=== PATIENT | female | born 1975 | race Caucasian/White ===

== ENCOUNTER 2017-04-17 14:47 | Observation (INO) ==
[2017-04-17] MEDS ORDERED: Acetaminophen 325 MG TABLET PO PRN (18:59)
[2017-04-17] MEDS ORDERED: Naloxone 0.4 MG/ML INJ IVP PRN (18:59)
[2017-04-17] MEDS ORDERED: Ondansetron 4 MG/2 ML VIAL IVP PRN (18:59)
[2017-04-17] MEDS ORDERED: *HR* Morphine 2 MG/ML SYRINGE IVP PRN (18:59)
[2017-04-17] MEDS ORDERED: Nitroglycerin 0.4 MG TAB.SUBL SL PRN (19:04)
--- NOTE | 2017-04-17 20:20 | Internal Med History&Physical ---
Date of Encounter: 04/17/17 Time of Encounter: 19:45 Assessment and Plan (1) Chest pain Current visit: No Status: Acute Atypical chest pain - rule out ACS Continue Aspirin, Lipitor, Nitroglycerin as needed, IV Morphine as needed Risk factors including smoking, hypertension, family history of coronary artery disease EKG - sinus rhythm with no acute ST-T changes, possible old inferior PA Chest x-ray - pending Troponin - negative, cycle troponin BNP - pending Echocardiogram - pending Stress test - pending Lipid panel - pending Cardiac telemetry, all labs in a.m., monitor closely Qualifiers: Ischemic chest pain type: unspecified angina pectoris type Qualified Code(s ): I20.9 - Angina pectoris, unspecified (2) Prediabetes Current visit: Yes Status: Acute Patient states she has been diagnosed with prediabetes recently Continue glucose checks, insulin sliding scale HbA1c - pending (3) HTN (hypertension) Current visit: No Status: Chronic Essential hypertension, controlled, monitor Hold home meds including Metoprolol, Clonidine and Amlodipine due to hypotension Qualifiers: Hypertension type: essential hypertension Qualified Code(s): I10 - Essential (primary) hypertension (4) Depression Current visit: Yes Status: Chronic Chronic major depression, stable Continue home dose of Trazodone when dose is confirmed Qualifiers: Depression Type: major depressive disorder Major depression recurrence: recurrent Active/Remission status: currently active Major depression episode severity: mild Qualified Code(s): F33.0 - Major depressive disorder, recurrent, mild (5) Restless legs syndrome Current visit: Yes Status: Chronic Chronic restless leg syndrome - continue Requip 0.5 mg (6) Tobacco abuse disorder Current visit: No Status: Chronic Patient smokes about one pack of cigarettes daily, and has smoked for more than 10 years Counseled about cessation, nicotine patch after stress test (7) DVT prophylaxis Current visit: Yes Status: Acute Continue heparin subcutaneous Internal Medicine - H&P: HPI Chief complaint: Chest pain Admitted From: Hospital to Hospital Transfer Plans for Post Hospital Care: Home History of present illness: Ms. Lang is a 41 year old female with past medical history of hypertension, depression, history of PA, probable COPD and restless legs syndrome. Patient presents as a transfer from [facility] in [place] for chest pain. Examined in the room. Patient is awake and alert. Not in any distress. Able to provide all history. Family is at bedside. Patient states she developed chest pain about one week ago, and the pain has been intermittent. She decided to go to the ED today because of dizziness and headache, and her blood pressure was low when she checked it. Patient also complains of mild associated shortness of breath and palpitations. She describes the chest pain as left- sided which is dull pressure-like pain. It radiates to the center of her chest , and sometimes toward her back on the left side. She cannot think of anything that may have started the symptoms. No aggravating or alleviating factors. Chest pain has been intermittent and lasts anywhere between a few minutes to up an hour. Denies cough or vomiting or fever. Denies diaphoresis. No other associated symptoms. No other acute complaints. Patient states chest pain seems to have improved at this time. Risk factors for PA include smoking, hypertension and strong family history of coronary artery disease. Patient states she smokes about 1 pack cigarettes daily and has been smoking for more than 10 years. Patient was transferred here at her request. Initial workup at [facility] is negative. Troponin is negative. EKG does not show any acute ST-T changes. Repeat EKG here shows sinus rhythm with no acute ST-T changes, and shows possible old inferior PA. We will need to trend troponin. Patient has been given 325 mg Aspirin at [facility]. We will continue her home dose of Aspirin in the morning. She will also be on Lipitor. Patient will need stress test and echocardiogram. Patient and family have been explained about her condition and plan of care in detail. They understood and agreed. No unanswered questions. CODE STATUS full code. Past Med Surg Social Fam HX - Past Medical History Medical history: cancer, GERD, hypertension, myocardial infarction Psychiatric history: depression - Past Surgical History Surgical History: hysterectomy, orthopedic, other (Ankle fracture repair, fracture of the hand), COLIN/BSO, other (Left heart cath, left renal cancer/cyst surgery) - Social History Smoking Status: Current every day smoker Packs per day: 1 Smokeless Tobacco Status: No Alcohol use: none Drug use: none - Family History Father Hx Family Cardiac Disorders: Yes Mother Adopted: No Living Status: Hx Family Cardiac Disorders: Yes (htn, mitral valve issues, PA) Hx Family Respiratory Disorders: No Hx Family Cancer: No Hx Family GI Disorders: No Hx Family Endocrine Disorder: No Hx Family Neuromuscular Disorders: No Hx Family Neurologic Disorders: No Hx Family HEENT Disorders: No Hx Family Autoimmune Disorders: No Internal Medicine - H&P: Meds Amlodipine [Norvasc] 10 mg PO HS 02/14/15 [History] Aspirin Enteric Coated [Aspirin EC] 81 mg PO DAILY 02/14/15 [History] CloNIDine HCl 0.1 mg PO TID 02/14/15 [History] Metoprolol [Lopressor] 100 mg PO HS 02/14/15 [History] Ranitidine HCl [Zantac] 150 mg PO HS 02/14/15 [History] Albuterol Sulfate [Albuterol Inhaler] 1 puff IH Q4HR PRN #1 hfa.aer.ad NS [Rx] Losartan Potassium [Cozaar] 100 mg PO HS 07/28/15 [History] Ropinirole HCl [Requip] 0.25 mg PO HS 07/28/15 [History] Spironolactone [Aldactone] 50 mg PO HS 07/28/15 [History] HYDROcodone/Acet 5/325 mg [Keasbey 5-325 mg] 2 tab PO Q4H PRN #25 tablet 07/30/15 [Rx] Nystatin [Nystatin Suspension] 5 ml PO QID #240 ml 07/31/15 [Rx] cephALEXin [Keflex] 500 mg PO QID 10 Days capsule 07/31/15 [Rx] Naproxen [Naprosyn] 500 mg PO BID PRN #30 tablet 09/04/15 [Rx] OxyCODONE/APAP 5/325 [Percocet 5/325 MG] 1 each PO Q6HR PRN #10 tablet 09/04/15 [Rx] traMADol [Ultram] 50 mg PO Q6HR #20 tablet 11/02/15 [Rx] HYDROcodone/Acet 5/325 mg [Keasbey 5-325 mg] 1 tab PO Q6H PRN #12 tab 03/24/16 [Rx ] 3 Allergy/AdvReac Type Severity Reaction Status Date / Time No Known Allergies Allergy Verified 04/14/15 15:27 All Systems PM: A 10-system review of systems was performed and is negative for pertinent findings except as documented above in the HPI. - Constitutional Constitutional: fatigue, no fever(s), no weakness - EENT Eyes: no blurry vision - Cardiovascular Cardiovascular ROS IM: chest pain, dyspnea, edema, palpitations, no diaphoresis , no dyspnea on exertion, no lightheadedness, no orthopnea, no syncope - Respiratory Respiratory: dyspnea, no cough, no hemoptysis, no dyspnea on exertion, no wheezing, no chest congestion - Gastrointestinal Gastrointestinal: no abdominal pain, no belching, no cramping, no diarrhea, no hematemesis, no hematochezia, no nausea, no vomiting - Genitourinary Genitourinary: no dysuria - Neurological Neurological ROS: no abnormal gait, no confusion, no dizziness, no focal weakness, no numbness, no tingling - Constitutional Vitals: Temp Pulse Resp BP Pulse Ox 98.5 F 71 18 97/60 94 04/17/17 18:48 04/17/17 18:48 04/17/17 18:48 04/17/17 18:48 04/17/17 18:48 General appearance: Present: cooperative, A&O X 3, pleasant, no acute distress, obese, answers questions appropriately - Head Head exam: Present: atraumatic - Eye Eye exam: Present: EOMI - ENT ENT exam: Present: mucous membranes moist - Respiratory Respiratory exam: Present: CTAB. Absent: rales, rhonchi, wheezes, tachypnea - Cardiovascular Cardiovascular exam: Present: RRR, +S1, +S2 - GI/Abdominal GI/Abdominal exam: Present: soft. Absent: distended, firm, guarding, tenderness - Extremities Exam Extremities exam: Present: pedal edema (Mild bilateral lower leg edema), radial pulses palpable and symmetrical. Absent: calf tenderness, cyanotic - Neurological Exam Neurological exam: Present: alert, oriented X3, no focal deficits. Absent: facial droop, speech deficit
[2017-04-17 20:29] LABS: Basophils % 0.2 %; Eosinophils # 0.1 K/mcL (0.0-0.6); Eosinophils % 1.1 %; Hematocrit 45.2 % (35.3-44.9); Hemoglobin 15.9 g/dL (11.5-15.4); Immature Granulocytes % 0.4 % (0-4); Immature Platelets 13.7 % (1.1-6.1); Lymphocytes # 3.2 K/mcL (0.6-4.6); Lymphocytes % 39.9 %; Mean Corpuscular HGB Conc 35.2 g/dL (31.6-35.5); Mean Corpuscular Hemoglobin 30.2 pg (28.0-33.3); Mean Corpuscular Volume 85.9 fL (83.0-100.0); Mean Platelet Volume 12.2 fL (9.4-12.4); Monocytes # 0.5 K/mcL (0.0-1.3); Monocytes % 5.7 %; Neutrophils # 4.3 K/mcL (1.6-8.9); Platelet Count 189 K/mcL (140-400); Red Blood Count 5.26 M/mcL (3.82-4.97); Red Cell Distribution Width 13.2 % (11.5-14.5); Segmented Neutrophils % 52.7 %
[2017-04-17 20:33] LABS: Prothrombin Time 10.8 Seconds (9.4-12.1)
[2017-04-17 20:42] LABS: BUN/Creatinine Ratio 21 (6-26); Blood Urea Nitrogen 16 mg/dL (7-20); Calcium 9.2 mg/dL (8.6-10.8); Carbon Dioxide 25 mEq/L (19-29); Chloride 106 mEq/L (98-109); Chol/HDL Ratio 8.6 (0-4.9); Cholesterol 197 mg/dL (< 200); Glucose 142 mg/dL (70-99); HDL Cholesterol 23 mg/dL (40-59); Magnesium 2.2 mg/dL (1.6-2.6); Osmolality,Calculated 296 (280-300); Potassium 3.4 mEq/L (3.5-4.5); Triglycerides 531 mg/dL (< 150); eGFR For African Americans > 60 (> 60); eGFR For Non-African Americans > 60 (> 60)
[2017-04-17 20:50] LABS: Sodium 141 mEq/L (136-145)
[2017-04-17] MEDS ORDERED: rOPINIRole 0.25 MG TABLET PO SCH (21:00)
[2017-04-17] MEDS ORDERED: D5% in Water 1,000 ML IVC PRN (21:48)
[2017-04-17] MEDS ORDERED: Dextrose Gel 15 GM PO PRN ×2 (21:48)
[2017-04-17] MEDS ORDERED: *HR* Dextrose 50 % in Water (Syg) 50 ML SYRINGE IVP PRN (21:48)
[2017-04-17] MEDS: *HR* Heparin 5,000 UNIT/ML VIAL SQ SCH (21:59)
[2017-04-17 22:07] LABS: Hemoglobin A1C 5.3 %
[2017-04-18 01:01] LABS: Basophils % 0.3 %; Eosinophils # 0.1 K/mcL (0.0-0.6); Eosinophils % 1.4 %; Hematocrit 42.8 % (35.3-44.9); Hemoglobin 14.7 g/dL (11.5-15.4); Immature Granulocytes % 0.1 % (0-4); Immature Platelets 14.1 % (1.1-6.1); Lymphocytes # 3.3 K/mcL (0.6-4.6); Lymphocytes % 43.4 %; Mean Corpuscular HGB Conc 34.3 g/dL (31.6-35.5); Mean Corpuscular Hemoglobin 30.1 pg (28.0-33.3); Mean Corpuscular Volume 87.5 fL (83.0-100.0); Mean Platelet Volume 12.1 fL (9.4-12.4); Monocytes # 0.6 K/mcL (0.0-1.3); Neutrophils # 3.6 K/mcL (1.6-8.9); Platelet Count 161 K/mcL (140-400); Red Blood Count 4.89 M/mcL (3.82-4.97); Red Cell Distribution Width 13.3 % (11.5-14.5); Segmented Neutrophils % 46.8 %
[2017-04-18 01:13] LABS: BUN/Creatinine Ratio 23 (6-26); Blood Urea Nitrogen 19 mg/dL (7-20); Calcium 9.1 mg/dL (8.6-10.8); Carbon Dioxide 27 mEq/L (19-29); Chloride 105 mEq/L (98-109); Glucose 108 mg/dL (70-99); Osmolality,Calculated 297 (280-300); Potassium 3.9 mEq/L (3.5-4.5); Sodium 142 mEq/L (136-145); eGFR For African Americans > 60 (> 60); eGFR For Non-African Americans > 60 (> 60)
[2017-04-18] MEDS ORDERED: Famotidine 20 MG/2 ML VIAL IVP SCH (06:00)
[2017-04-18] MEDS ORDERED: Regadenoson 0.4 MG/5 ML SYRINGE IVP ONE (06:04)
[2017-04-18] MEDS: *HR* Heparin 5,000 UNIT/ML VIAL SQ SCH (06:08)
[2017-04-18] MEDS ORDERED: Aspirin 81 MG TAB.CHEW PO SCH (09:00)
[2017-04-18] MEDS: Insulin LISPRO 300 UNITS/3 ML VIAL SQ SCH (12:50)
[2017-04-18] MEDS ORDERED: Furosemide 20 MG TABLET PO PRN (13:19)
[2017-04-18 14:28] VITALS: BP 129/83
--- NOTE | 2017-04-18 14:59 | Discharge Summary ---
Date of Encounter: 04/18/17 Time of Encounter: 14:00 - Discharge Diagnosis (1) Chest pain Priority: Primary Status: Acute Comments: Presented to the emergency department with one-week history of chest pain that is intermittent. Patient also reports dizziness, headache, shortness of breath palpitations and hypotension. He reports that the pain is left-sided and pressure-like radiates to mid sternal area and sometimes towards her back. There are no relieving or alleviating factors. She denies cough, nausea, vomiting, fever, chills, diaphoresis. She reports that she found an old blood pressure cuff at home and took her blood pressure, was 93/67, with a 55 pulse well-seated. Patient states that she was concerned and took so her who told her to get up and walk to smoke cigarette etc. Patient states when she came back she took her blood pressure again pulse was 60, blood pressure is 89/54. Patient has increased risk factors for UT including smoking, hypertension, family history of coronary artery disease. Patient smokes a what one pack of cigarettes a day and states that she does not want to stop smoking at this time. Troponins were negative 3. Chest x-ray from [facility] was negative for acute process. Echocardiogram shows LVEF of 65% with normal LV systolic function, normal LV diastolic function and no significant valvular dysfunction. Stress test was negative for ischemia or infarct, gated EF is greater than 70% . Pain is not reproducible with palpation, movement, deep inspiration. Patient denies chest pain at this time. Her vitals up in stable, she does become bradycardic at night, which is to be expected. Last set of vitals was pulse 67 blood pressure 129/83, 95% on room air. Patient will need to follow up with primary care provider Qualifiers: Ischemic chest pain type: unspecified angina pectoris type Qualified Code(s ): I20.9 - Angina pectoris, unspecified (2) HTN (hypertension) Priority: Secondary Status: Chronic Comments: Patient's blood pressures been well controlled in the hospital. I recommend the patient continues current regimen based on current findings. I recommended that she get a new blood pressure cuff at home to monitor vital signs. Record vital signs and share with primary care. Qualifiers: Hypertension type: essential hypertension Qualified Code(s): I10 - Essential (primary) hypertension (3) Obesity Priority: Secondary Status: Chronic Comments: Chronic. Lifestyle changes. Encouraged pt to learn about and attempt lower carbohydrate diets. Qualifiers: Obesity type: due to excess calories Obesity classification: adult class 1 (BMI 30 ? 34.9) Serious obesity comorbidity presence: without serious comorbidity Body mass index: BMI 34.0-34.9 Qualified Code(s): E66.09 - Other obesity due to excess calories; Z68.34 - Body mass index (BMI) 34.0-34.9, adult; Z68.34 - Body mass index (BMI) 34.0-34.9, adult (4) Prediabetes Priority: Secondary Status: Acute Comments: A1c 5.3%. Pt reports that her PCP told her that she had prediabetes. A1c is normal. (5) Depression Priority: Secondary Status: Chronic Comments: Chronic. Continue home medications. Qualifiers: Depression Type: major depressive disorder Major depression recurrence: recurrent Active/Remission status: currently active Major depression episode severity: mild Qualified Code(s): F33.0 - Major depressive disorder, recurrent, mild (6) DVT prophylaxis Priority: Secondary Status: Acute Comments: Heparin SQ - Discharge Medications Home Medications: Amlodipine [Norvasc] 10 mg PO HS 02/14/15 [History] Aspirin Enteric Coated [Aspirin EC] 81 mg PO DAILY 02/14/15 [History] CloNIDine HCl 0.1 mg PO TID 02/14/15 [History] Metoprolol [Lopressor] 100 mg PO BID 02/14/15 [History] Ranitidine HCl [Zantac] 150 mg PO BID 02/14/15 [History] Albuterol Sulfate [Albuterol Inhaler] 1 puff IH Q4HR PRN #1 hfa.aer.ad NS [Rx] Losartan Potassium [Cozaar] 100 mg PO HS 07/28/15 [History] Ropinirole HCl [Requip] 0.25 mg PO HS 07/28/15 [History] Spironolactone [Aldactone] 50 mg PO HS 07/28/15 [History] Aspirin 81 mg PO DAILY tab.chew 04/18/17 [Rx] Atorvastatin [Lipitor] 40 mg PO HS tablet 04/18/17 [Rx] Furosemide [Lasix] 20 mg PO DAILY PRN 04/18/17 [History] Paroxetine [Paxil] 20 mg PO DAILY 04/18/17 [History] traZODone [TraZODone] 50 mg PO HS 04/18/17 [History] Allergies/Adverse Reactions: 3 Allergy/AdvReac Type Severity Reaction Status Date / Time No Known Allergies Allergy Verified 04/14/15 15:27 Procedures/tests Complete & Pending: Procedures Performed prior 72 hours Category Date Time Status NM caprice perf SPECT multi [NM] Routine Exams 04/17/17 19:04 Taken ECG 12 lead ECG [ECG] Routine Y 04/17/17 18:59 Completed EV echocardiogram Routine Y 04/18/17 19:03 Completed SP pharm nuclear stress Routine Y 04/18/17 07:00 Completed Date of admission: 04/17/17 17:16 Primary care physician: Mason Griffith MD Discharging clinician: Radha Hall Anticipated date of discharge: 04/18/17 - Patient Status Disposition: Home, Self-Care Condition: Good Functional capacity at discharge: independent ambulation Overall status at discharge: patient is back to baseline - Discharge Instructions Follow Up With: Mason Griffith MD [Primary Care Provider] - Additional Instructions: Try to get in with your new PCP later this month as planned. No medication changes are needed currently based on your vitals while in the hospital. Make sure that you are drinking plenty of fluids. Return to the closest ER as needed Return to your normal activities as tolerated. - Diet and Activity Activity: increase activity as tolerated Diet: advance to your usual diet Hospital course: Ms. Lang is a 41 year old female with PMH of prediabetes, HTN, Obesity, tobacco abuse, left renal mass, depression, RLS. She was seen at another hospital and transferred here for evalution of chest pain and hypotension. She denies chest pain, sOB, n/v/d, diaphoresis, abd pain, headache. She has been primarily normotensive and pulse WnL throughout stay. Her stress was negative, echo showed preserved EF and no valvular dysfunction. A1c is 5.3, WNL. Pt states that she does not wish to stop smoking. Pt declines flu vaccine. Labs are stable. Pt is ready for discharge. See assessment and plan for hospital course. - Time Spent with Patient Total time spent providing and/or coordinating discharge services: Less than 30 minutes - Constitutional Vitals: Temp Pulse Resp BP Pulse Ox 98.5 F 67 17 129/83 95 04/18/17 14:23 10/16/17 14:23 04/18/17 10:57 04/18/17 14:23 04/18/17 14:23 General appearance: Present: cooperative, A&O X 3, pleasant, no acute distress, obese, answers questions appropriately - Head Head exam: Present: atraumatic, normal inspection, normocephalic - Eye Eye exam: Present: normal appearance, conjuntiva pink, sclera anicteric - Neck Neck exam general surgery: Present: supple, trachea midline. Absent: lymphadenopathy, tenderness - Respiratory Respiratory exam: Present: CTAB. Absent: accessory muscle use, chest wall tenderness, rales, respiratory distress, rhonchi, wheezes - Cardiovascular Cardiovascular exam: Present: RRR, +S1, +S2. Absent: diastolic murmur, gallop, rubs, systolic murmur - GI/Abdominal GI/Abdominal exam: Present: normal bowel sounds, soft, no peritoneal signs. Absent: distended, hepatomegaly, tenderness - Extremities Exam Extremities exam: Present: normal inspection, warm, radial pulses palpable and symmetrical. Absent: calf tenderness, cyanotic, pedal edema - Neurological Exam Neurological exam: Present: alert, oriented X3, no focal deficits. Absent: facial droop, speech deficit - Skin Skin exam: Present: dry, intact, normal color, warm. Absent: rash
[2017-04-18] MEDS ORDERED: cloNIDine HCl 0.1 MG TABLET PO SCH (15:00)
--- NOTE | 2017-04-18 18:09 | Electrocardiograph Report ---
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
[2017-04-18] MEDS ORDERED: rOPINIRole 0.25 MG TABLET PO SCH (21:00)
[2017-04-18] MEDS ORDERED: amLODIPine 5 MG TABLET PO SCH (21:00)
[2017-04-18] MEDS ORDERED: Famotidine 20 MG TABLET PO SCH (21:00)
[2017-04-18] MEDS ORDERED: Insulin LISPRO 300 UNITS/3 ML VIAL SQ SCH (21:00)
[2017-04-18] MEDS ORDERED: traZODone 50 MG TABLET PO SCH (21:00)
[2017-04-18] MEDS ORDERED: Metoprolol 100 MG TABLET PO SCH (21:00)
[2017-04-19] MEDS ORDERED: Aspirin Enteric Coated 81 MG Tablet PO SCH (09:00)
== END 2017-04-18 15:54 | disposition home or self-care (01) ==
LOC: 3BNU
PROVIDERS: ADMIT Family Medicine; ATTEND Registered Nurse

== ENCOUNTER 2017-09-29 12:50 | Observation (INO) ==
--- NOTE | 2017-09-29 17:25 | Internal Med History&Physical ---
Date of Encounter: 09/29/17 Time of Encounter: 17:12 Assessment and Plan (1) Chest pain Current visit: Yes Status: Acute Patient presented with atypical chest pain, she had a negative cardiac catheterization in 2008. She also just had a normal echocardiogram, and negative stress test in April 2017. We will do a d-dimer if it is positive then we will need PE studies, if negative follow-up 3 troponins to rule out MRI Qualifiers: Chest pain type: chest pain due to myocardial ischemia Ischemic chest pain type: angina pectoris with documented coronary spasm Qualified Code(s): I20.1 - Angina pectoris with documented spasm (2) HTN (hypertension) Current visit: Yes Status: Chronic Qualifiers: Hypertension type: essential hypertension Qualified Code(s): I10 - Essential (primary) hypertension (3) Obesity Current visit: Yes Status: Chronic Qualifiers: Obesity type: due to excess calories Obesity classification: adult class 1 (BMI 30 - 34.9) Serious obesity comorbidity presence: without serious comorbidity Body mass index: BMI 34.0-34.9 Qualified Code(s): E66.09 - Other obesity due to excess calories; Z68.34 - Body mass index (BMI) 34.0-34.9, adult; Z68.34 - Body mass index (BMI) 34.0-34.9, adult (4) Tobacco abuse disorder Current visit: Yes Status: Chronic Smoking cessation discussed (5) Prediabetes Current visit: Yes Status: Chronic (6) Depression Current visit: Yes Status: Chronic Qualifiers: Depression Type: major depressive disorder Major depression recurrence: recurrent Active/Remission status: currently active Major depression episode severity: mild Qualified Code(s): F33.0 - Major depressive disorder, recurrent, mild Internal Medicine - H&P: HPI Chief complaint: chest pain Admitted From: Home Plans for Post Hospital Care: Home History of present illness: Ms. Lang is a 41 year old female who has history of hypertension prediabetic obesity smoker presented to emergency room for chest pain. Chest pain started at 7:30 AM located to left sided chest, a constant pressure 8 out of 10, lasted for several hours, associated sweating and the nausea. She received aspirin but no nitrate due to low blood pressure. her chest pain improved. Patient said was admitted nfor chest pain in April 2017 for similar episode. she had negative stress test at that time and the echocardiogram was normal with EF 65% . Patient stated she had a history of DE back to 2008 when she had cardiac catheterization which showed normal coronary artery. Patient is admitted for rule out DE will follow-up as 3 troponins. she just had ,normal echocardiogram and a stress test on 04/2017 and will not repeated. will check D-Dimer, if elevated then need CT PE study. Past Med Surg Social Fam HX - Past Medical History Medical history: cancer, GERD, hyperlipidemia, hypertension, myocardial infarction Psychiatric history: anxiety, depression - Past Surgical History Surgical History: angioplasty/stent, hysterectomy, orthopedic, other, COLIN/BSO, other - Social History Smoking Status: Current every day smoker Smokeless Tobacco Status: No Alcohol use: none Drug use: none - Family History Father Hx Family Cardiac Disorders: Yes Mother Adopted: No Living Status: Hx Family Cardiac Disorders: Yes (htn, mitral valve issues, DE) Hx Family Respiratory Disorders: No Hx Family Cancer: No Hx Family GI Disorders: No Hx Family Endocrine Disorder: No Hx Family Neuromuscular Disorders: No Hx Family Neurologic Disorders: No Hx Family HEENT Disorders: No Hx Family Autoimmune Disorders: No Internal Medicine - H&P: Meds Amlodipine [Norvasc] 10 mg PO HS 02/14/15 [History] Aspirin Enteric Coated [Aspirin EC] 81 mg PO DAILY 02/14/15 [History] CloNIDine HCl 0.1 mg PO TID 02/14/15 [History] Metoprolol [Lopressor] 100 mg PO BID 02/14/15 [History] Ranitidine HCl [Zantac] 150 mg PO BID 02/14/15 [History] Albuterol Sulfate [Albuterol Inhaler] 1 puff IH Q4HR PRN #1 hfa.aer.ad NS [Rx] Losartan Potassium [Cozaar] 100 mg PO HS 07/28/15 [History] Ropinirole HCl [Requip] 0.25 mg PO HS 07/28/15 [History] Spironolactone [Aldactone] 50 mg PO HS 07/28/15 [History] Aspirin 81 mg PO DAILY tab.chew 04/18/17 [Rx] Atorvastatin [Lipitor] 40 mg PO HS tablet 04/18/17 [Rx] Furosemide [Lasix] 20 mg PO DAILY PRN 04/18/17 [History] Paroxetine [Paxil] 20 mg PO DAILY 04/18/17 [History] traZODone [TraZODone] 50 mg PO HS 04/18/17 [History] 3 Allergy/AdvReac Type Severity Reaction Status Date / Time No Known Allergies Allergy Verified 04/14/15 15:27 All Systems PM: A 10-system review of systems was performed and is negative for pertinent findings except as documented above in the HPI. - Constitutional General appearance: Present: A&O X 3, no acute distress, obese Exam: CONSTITUTIONAL: Patient appears as an age appropriate female well developed, in no acute distress. EYES Clear sclerae, bilateral pupils are equal, reactive to light and accommodation. Extraocular movements are intact RESPIRATORY: No accessory muscle use, bilateral clear to auscultation, no wheezing, no crackles/rales. CARDIOVASCULAR: Regular heart rate, normal S1 and S2, no murmurs GASTROINTESTINAL: bowel sounds present, soft, no tenderness. No hepatosplenomegaly. No bilateral CVA tenderness MUSCULOSKELETAL: Joints in normal range of motion, no clubbing, no edema, no cyanosis. Bilateral peripheral pulses 2+ LYMPHATIC no lymphadenopathy in neck, groin and axilla bilaterally, no thyromegaly. NEUROLOGIC: CN II to XII are grossly intact, no focal neurological deficit. Deep tendon reflexes 2+ bilaterally. Normal light touch sensation to upper and lower extremity PSYCHIATRIC: Oriented x3, with good insight, mood is euthymic. No hallucinations or delusions. SKIN: Skin warm and dry, no rashes, no open wound.
[2017-09-29] MEDS ORDERED: Naloxone 0.4 MG/ML INJ IVP PRN (17:37)
[2017-09-29] MEDS ORDERED: Metoprolol 100 MG TABLET PO SCH (21:00)
[2017-09-29] MEDS ORDERED: Famotidine 20 MG TABLET PO SCH (21:00)
[2017-09-29] MEDS ORDERED: traZODone 50 MG TABLET PO SCH (21:00)
[2017-09-29] MEDS ORDERED: rOPINIRole 0.25 MG TABLET PO SCH (21:00)
[2017-09-29] MEDS ORDERED: Acetaminophen 325 MG TABLET PO PRN (22:23)
[2017-09-29] MEDS ORDERED: *HR* HYDROcodone/Acet 5/325 mg TABLET PO PRN (22:24)
[2017-09-29] MEDS ORDERED: *HR* OxyCODONE/APAP 10/325 TABLET PO PRN (22:24)
[2017-09-30 07:08] LABS: Basophils % 0.4 %; Eosinophils # 0.1 K/mcL (0.0-0.6); Hematocrit 43.7 % (35.3-44.9); Hemoglobin 14.7 g/dL (11.5-15.4); Immature Granulocytes % 0.3 % (0-4); Lymphocytes # 2.8 K/mcL (0.6-4.6); Lymphocytes % 41.5 %; Mean Corpuscular HGB Conc 33.6 g/dL (31.6-35.5); Mean Corpuscular Hemoglobin 29.8 pg (28.0-33.3); Mean Corpuscular Volume 88.5 fL (83.0-100.0); Mean Platelet Volume 12.7 fL (9.4-12.4); Monocytes # 0.6 K/mcL (0.0-1.3); Monocytes % 8.3 %; Neutrophils # 3.3 K/mcL (1.6-8.9); Platelet Count 152 K/mcL (140-400); Red Blood Count 4.94 M/mcL (3.82-4.97); Red Cell Distribution Width 13.6 % (11.5-14.5); Segmented Neutrophils % 48.5 %
[2017-09-30 07:12] VITALS: BP 121/70
[2017-09-30 07:12] LABS: BUN/Creatinine Ratio 32 (6-26); Blood Urea Nitrogen 24 mg/dL (6-20); Calcium 8.8 mg/dL (8.6-10.3); Carbon Dioxide 26 mEq/L (23-29); Chloride 107 mEq/L (98-107); Glucose 103 mg/dL (70-105); Magnesium 1.9 mg/dL (1.6-2.6); Osmolality,Calculated 296 (280-300); Potassium 3.7 mEq/L (3.5-5.1); Sodium 141 mEq/L (136-145); eGFR For African Americans > 60 (> 60); eGFR For Non-African Americans > 60 (> 60)
--- NOTE | 2017-09-30 07:46 | Discharge Summary ---
- NOTES TO OUTPATIENT PROVIDER Notes to Outpatient Provider: Follow up with PCP in 2-3 days after discharge. BP medication can be adjusted at that time. Date of Encounter: 09/30/17 Time of Encounter: 07:44 - Discharge Diagnosis (1) Chest pain Priority: Primary Status: Resolved Qualifiers: Chest pain type: chest pain due to myocardial ischemia Ischemic chest pain type: angina pectoris with documented coronary spasm Qualified Code(s): I20.1 - Angina pectoris with documented spasm (2) HTN (hypertension) Priority: Secondary Status: Chronic Qualifiers: Hypertension type: essential hypertension Qualified Code(s): I10 - Essential (primary) hypertension (3) Depression Priority: Secondary Status: Chronic Qualifiers: Depression Type: major depressive disorder Major depression recurrence: recurrent Active/Remission status: currently active Major depression episode severity: mild Qualified Code(s): F33.0 - Major depressive disorder, recurrent, mild (4) Obesity Priority: Secondary Status: Chronic Qualifiers: Obesity type: due to excess calories Obesity classification: adult class 1 (BMI 30 - 34.9) Serious obesity comorbidity presence: without serious comorbidity Body mass index: BMI 34.0-34.9 Qualified Code(s): E66.09 - Other obesity due to excess calories; Z68.34 - Body mass index (BMI) 34.0-34.9, adult; Z68.34 - Body mass index (BMI) 34.0-34.9, adult (5) Prediabetes Priority: Secondary Status: Chronic (6) Tobacco abuse disorder Priority: Secondary Status: Chronic Hospital course: Ms. Lang is a 41 year old female admitted for atypical chest pain. She was admitted to general medical floor with telemetry. Cardiac enzymes trended negative x 3. Chest pain resolved after admission with no further episodes. She had negative stress test in 2017. She recently had normal ECHO. D-dimer was within normal range. She states that she is feel good and wants to go home today. She denies any chest pain, palpitations, or SOB. She will follow up with PCP in 2-3 days after discharge. Patient has met maximum benefit of this hospitalization and will be discharged home in stable condition. Discharge discussed with: patient, family, nurse - Time Spent with Patient Total time spent providing and/or coordinating discharge services: Less than 30 minutes - Discharge Medications Home Medications: Amlodipine [Norvasc] 10 mg PO HS 02/14/15 [History] Aspirin Enteric Coated [Aspirin EC] 81 mg PO DAILY 02/14/15 [History] CloNIDine HCl 0.1 mg PO TID 02/14/15 [History] Metoprolol [Lopressor] 100 mg PO BID 02/14/15 [History] Ranitidine HCl [Zantac] 150 mg PO BID 02/14/15 [History] Albuterol Sulfate [Albuterol Inhaler] 1 puff IH Q4HR PRN #1 hfa.aer.ad NS [Rx] Losartan Potassium [Cozaar] 100 mg PO HS 07/28/15 [History] Ropinirole HCl [Requip] 0.25 mg PO HS 07/28/15 [History] Spironolactone [Aldactone] 50 mg PO HS 07/28/15 [History] Aspirin 81 mg PO DAILY tab.chew 04/18/17 [Rx] Atorvastatin [Lipitor] 40 mg PO HS tablet 04/18/17 [Rx] Furosemide [Lasix] 20 mg PO DAILY PRN 04/18/17 [History] Paroxetine [Paxil] 20 mg PO DAILY 04/18/17 [History] traZODone [TraZODone] 50 mg PO HS 04/18/17 [History] Allergies/Adverse Reactions: 3 Allergy/AdvReac Type Severity Reaction Status Date / Time No Known Allergies Allergy Verified 04/14/15 15:27 Date of admission: 09/29/17 16:18 Primary care physician: Aleyda Lagunas, PAC Discharging clinician: Alexis Manzo Anticipated date of discharge: 09/30/17 - Constitutional Vitals: Temp Pulse Resp BP Pulse Ox 97.9 F 50 14 121/70 98 09/30/17 07:11 09/30/17 07:11 09/30/17 07:11 09/30/17 07:11 09/30/17 07:11 General appearance: Present: cooperative, A&O X 3, no acute distress, obese, answers questions appropriately - Respiratory Respiratory exam: Present: CTAB. Absent: accessory muscle use, rales, rhonchi, wheezes Additional comments: Normal WOB - Cardiovascular Cardiovascular exam: Present: RRR, +S1, +S2. Absent: diastolic murmur, gallop, rubs, systolic murmur - GI/Abdominal GI/Abdominal exam: Present: normal bowel sounds, soft. Absent: distended, hepatomegaly, mass, splenomegaly, tenderness - Psychiatric Psychiatric exam: Present: normal affect, normal mood. Absent: anxious, depressed - Skin Skin exam: Present: dry, intact, warm. Absent: cyanosis, rash - Patient Status Disposition: Home, Self-Care Condition: Good Functional capacity at discharge: independent ambulation Overall status at discharge: patient is back to baseline - Discharge Instructions Follow Up With: Aleyda Lagunas PAC [Primary Care Provider] - Additional Instructions: Follow up with PCP in 2-3 days after discharge. BP medication can be adjusted at that time. - Diet and Activity Activity: resume usual activities as tolerated Diet: diabetic diet, low fat, low cholesterol, low salt diet, other (Cardiac) - VTE Reasons for not Prescribing Prophylaxis: Treatment not Indicated - Low risk for VTE
[2017-09-30] MEDS ORDERED: Aspirin 81 MG TAB.CHEW PO SCH (09:00)
--- NOTE | 2017-10-01 16:24 | Electrocardiograph Report ---
[address] [place], [place] [address] Test Date: 2017-09-29 Pat Name: Jamie Lang Department: 113 Room: 3B55 Gender: F Manager Acute: : 1975 Requested By: Ela Wagner Order Number: [id number] Reading MD: Yolanda Saleem Measurements Intervals [place] Rate: 50 P: 14 TN: 166 QRS: 5 QRSD: 82 T: 31 QT: 430 QTc: 405 Interpretive Statements SINUS BRADYCARDIA Electronically Signed On 10-01-2017 16:23:07 EDT by Yolanda Saleem
== END 2017-09-30 09:21 | disposition home or self-care (01) ==
LOC: 3BNU
PROVIDERS: ADMIT Hospitalist; ATTEND Registered Nurse